=== PATIENT | male | born 1960 | race African-American/Black ===

== ENCOUNTER 2025-02-20 18:26 | Emergency (ER) | payer OTHER ==
[~2025-02-20] VITALS: Ht 175.3 cm; Wt 97.0 kg
[2025-02-20 18:33] VITALS: O2SAT 98
[2025-02-20] MEDS: HYDROCODONE/ACETAMINOPHEN 5/325MG TABLET PO ONE (20:14)
[2025-02-20] MEDS: KETOROLAC 15MG/ML VIAL IM ONE (20:14)
[2025-02-20] MEDS ORDERED: IBUP-2030 MT (20:54)
[2025-02-20] MEDS ORDERED: GABA-1180 MT (20:54)
[2025-02-20 21:28] VITALS: BP 158/95; PULSE 70; RESP 18; TEMP 37.1; O2SAT 99
== END 2025-02-20 21:32 | disposition home or self-care (01) ==
LOC: ER 18:26
DX: M17.12 Unilateral primary osteoarthritis, left knee (principal)
CPT/HCPCS: 99283; 73562; 96372; J1885